=== PATIENT | female | born 1935 | race American Indian/Alaskan Native ===

== ENCOUNTER 2021-04-09 16:18 | Emergency (ER) | payer MEDICARE ==
--- NOTE | 2021-04-09 17:33 | Emergency Department Report ---
HPI - General Chief Complaint: GI Bleed Time Seen by Provider: 04/09/21 17:21 - HPI HPI: 85-year-old -[place] female presents to the emergency department with complaint of rectal bleeding. Overall she says that this has been going on since November but usually "it shuts off on its own." Since this morning the patient has had 2 episodes of heavy rectal bleeding with bowel movements. She says that it is a dark appearing blood. She has some mild lower abdominal cramping pain. Patient is visiting from [place]. She has not taken anything for symptoms prior to presentation. She denies any fever, rectal pain, dysuria, back pain, nausea, vomiting. She has a past medical history of diabetes. ED Past Medical Hx - Past Medical History Hx Diabetes: Yes - Surgical History Past Surgical History?: No ED Review of Systems ROS: Stated complaint: RECTAL BLEEDING Other details as noted in HPI Comment: All other systems reviewed and negative Constitutional: denies: chills, fever Eyes: denies: eye pain, vision change ENT: denies: ear pain, throat pain Respiratory: denies: cough, shortness of breath Cardiovascular: denies: chest pain, palpitations Gastrointestinal: abdominal pain, other (Rectal bleeding). denies: nausea, vomiting Genitourinary: denies: dysuria, discharge Musculoskeletal: denies: back pain, joint swelling Skin: denies: rash, lesions Neurological: denies: headache, weakness Physical Exam - Physical Exam Vital Signs: Vital Signs 04/09/21 04/09/21 16:22 16:24 Temperature 97.1 F L Pulse Rate 74 Respiratory 20 Rate Blood Pressure 149/65 O2 Sat by Pulse 98 Oximetry Physical Exam: GENERAL: The patient is well-developed well-nourished. HENT: Normocephalic. Atraumatic. Patient has moist mucous membranes. EYES: Extraocular motions are intact. NECK: Supple. Trachea is midline. CHEST/LUNGS: Clear to auscultation. There is no respiratory distress noted. HEART/CARDIOVASCULAR: Regular. There is no tachycardia. There is no murmur. ABDOMEN: Abdomen is soft. Mild lower abdominal tenderness to palpation. No guarding. Patient has normal bowel sounds. There is no abdominal distention. SKIN: Skin is warm and dry. NEURO: The patient is awake, alert, and oriented. The patient is cooperative. Normal speech. MUSCULOSKELETAL: There is no tenderness or deformity. There is no limitation range of motion. RECTAL: There is some gross red blood seen per rectum. No active hemorrhage. ED Course Vital Signs 04/09/21 04/09/21 16:22 16:24 Temperature 97.1 F L Pulse Rate 74 Respiratory 20 Rate Blood Pressure 149/65 O2 Sat by Pulse 98 Oximetry - Reevaluation(s) Reevaluation #1: 04/10/21 00:12 Rectal examination done with entry level lab technician Brianna at bedside to crystal lapper. - Consultations Consultation #1: 04/09/21 22:10 I spoke to the general surgeon on-call, Dr. Thomson, in regards to the CT findings of cholelithiasis with acute mild cholecystitis. As the patient does not have any tenderness to palpation in the right upper quadrant, is afebrile, does not have any leukocytosis, has normal LFTs and bilirubin, the patient does not appear to require any type of immediate surgical intervention or admission secondary to this CT finding. It may represent chronic cholecystitis. Consultation #2: 04/09/21 22:47 I spoke to the geography instructor on-call, Dr. Mcmahan. We discussed the patient's presentation, lab results, CT results showing sigmoid diverticulosis, vital signs. He agrees with the patient appears safe for discharge home at this time and with the plan for outpatient follow-up with [facility] prior to her return to [place]. He recommends the patient avoid any aspirin or NSAIDs. He recommends that the patient has good blood pressure control. ED Medical Decision Making - Lab Data Result diagrams: 04/09/21 17:35 04/09/21 17:35 Lab Results 04/09/21 04/09/21 04/09/21 Range/Units 17:35 17:35 17:35 WBC 8.6 (4.5-11.0) K/mm3 RBC 3.83 (3.65-5.03) M/mm3 Hgb 11.1 (10.1-14.3) gm/dl Hct 34.3 (30.3-42.9) % MCV 90 (79-97) fl MCH 29 (28-32) pg MCHC 32 (30-34) % RDW 13.3 (13.2-15.2) % Plt Count 234 (140-440) K/mm3 Lymph % (Auto) 24.0 (13.4-35.0) % Johnson % (Auto) 5.9 (0.0-7.3) % Eos % (Auto) 1.5 (0.0-4.3) % Baso % (Auto) 0.5 (0.0-1.8) % Lymph # (Auto) 2.1 (1.2-5.4) K/mm3 Johnson # (Auto) 0.5 (0.0-0.8) K/mm3 Eos # (Auto) 0.1 (0.0-0.4) K/mm3 Baso # (Auto) 0.0 (0.0-0.1) K/mm3 Seg Neutrophils % 68.1 (40.0-70.0) % Seg Neutrophils # 5.9 (1.8-7.7) K/mm3 PT 13.1 (12.2-14.9) Sec. INR 0.89 (0.87-1.13) APTT 31.9 (24.2-36.6) Sec. Sodium 139 (137-145) mmol/L Potassium 4.3 (3.6-5.0) mmol/L Chloride 102.4 (98-107) mmol/L Carbon Dioxide 26 (22-30) mmol/L Anion Gap 15 mmol/L BUN 22 H (7-17) mg/dL Creatinine 1.0 (0.6-1.2) mg/dL Estimated GFR 53 ml/min BUN/Creatinine Ratio 22 % Glucose 308 H (65-100) mg/dL POC Glucose (70-105) mg/dL Calcium 9.0 (8.4-10.2) mg/dL Total Bilirubin 0.20 (0.1-1.2) mg/dL AST 12 (5-40) units/L ALT 10 (7-56) units/L Alkaline Phosphatase 79 (35-129) units/L Total Protein 6.3 (6.3-8.2) g/dL Albumin 3.6 L (3.9-5) g/dL Albumin/Globulin Ratio 1.3 % 04/09/ Range/Units 20:31 WBC (4.5-11.0) K/mm3 RBC (3.65-5.03) M/mm3 Hgb (10.1-14.3) gm/dl Hct (30.3-42.9) % MCV (79-97) fl MCH (28-32) pg MCHC (30-34) % RDW (13.2-15.2) % Plt Count (140-440) K/mm3 Lymph % (Auto) (13.4-35.0) % Johnson % (Auto) (0.0-7.3) % Eos % (Auto) (0.0-4.3) % Baso % (Auto) (0.0-1.8) % Lymph # (Auto) (1.2-5.4) K/mm3 Johnson # (Auto) (0.0-0.8) K/mm3 Eos # (Auto) (0.0-0.4) K/mm3 Baso # (Auto) (0.0-0.1) K/mm3 Seg Neutrophils % (40.0-70.0) % Seg Neutrophils # (1.8-7.7) K/mm3 PT (12.2-14.9) Sec. INR (0.87-1.13) APTT (24.2-36.6) Sec. Sodium (137-145) mmol/L Potassium (3.6-5.0) mmol/L Chloride (98-107) mmol/L Carbon Dioxide (22-30) mmol/L Anion Gap mmol/L BUN (7-17) mg/dL Creatinine (0.6-1.2) mg/dL Estimated GFR ml/min BUN/Creatinine Ratio % Glucose (65-100) mg/dL POC Glucose 189 H (70-105) mg/dL Calcium (8.4-10.2) mg/dL Total Bilirubin (0.1-1.2) mg/dL AST (5-40) units/L ALT (7-56) units/L Alkaline Phosphatase (35-129) units/L Total Protein (6.3-8.2) g/dL Albumin (3.9-5) g/dL Albumin/Globulin Ratio % - Radiology Data Radiology results: report reviewed CT ABDOMEN AND PELVIS WITH CONTRAST INDICATION: Abd pain, Rectal bleeding. TECHNIQUE: Axial CT images were obtained through the abdomen and pelvis after 100 cc Omni [address] scans at this location are performed using CT dose reduction for ALARA by means of automated exposure control. COMPARISON: None available. FINDINGS: LOWER CHEST: No significant abnormality. LIVER: No significant abnormality. GALLBLADDER: Calcified gallstones with mild gallbladder wall thickening BILE DUCTS: No significant abnormality. PANCREAS: No significant abnormality. SPLEEN: No significant abnormality. ADRENALS: No significant abnormality. RIGHT KIDNEY and URETER: Several simple cysts, largest of which measures 2 cm arising from lower pole LEFT KIDNEY and URETER: Several tiny simple cysts STOMACH and SMALL BOWEL: No significant abnormality. COLON: Moderate sigmoid diverticulosis without diverticulitis. Moderate constipation APPENDIX: No significant abnormality. PERITONEUM: No free fluid. No free air. No fluid collection. LYMPH NODES: No significant adenopathy. AORTA and ARTERIES: Extensive vascular calcifications nonaneurysmal aorta and iliac arteries. No occlusion. IVC and VEINS: No significant abnormality. URINARY BLADDER: No significant abnormality. REPRODUCTIVE ORGANS: Abnormal uterus with probable thickened complex endometrium measuring 3.9 cm ADDITIONAL FINDINGS: None. SKELETAL SYSTEM: Osteopenia with old compression fracture involving superior endplate of T12 and moderate degenerative changes of lumbar spine IMPRESSION: 1. Cholelithiasis with acute mild acute cholecystitis. 2. Abnormal thickened endometrium could represent endometrial polyp/cancer or submucosal fibroid. Recommend pelvic ultrasound and/or SHELL MOLD BONDER consultation 3. Sigmoid diverticulosis. - Medical Decision Making This patient presents to the emergency department with a complaint of rectal bleeding that has been going on intermittently since November, but worsened this morning. She says that mostly occurred with bowel movements but that there was a large amount of blood. She also complains of some mild lower abdominal discomfort. On examination there is some reproducible lower abdominal tenderness to palpation but the abdomen is soft, nondistended and nontoxic in appearance. During my chaperoned rectal examination, the patient does have some bright red blood seen in her diaper but no active hemorrhage. Labs are mostly unremarkable including CBC, metabolic panel and coags. Her hemoglobin is 11 and this is not at a level that requires transfusion. The patient does not appear to be having any signs and symptoms of symptomatic anem ia. Patient had some hyperglycemia with a blood sugar of about 300, but it came down to an Accu-Chek of about 190 without any insulin given. There is very mild renal insufficiency with a GFR of 53. CT scan of the abdomen and pelvis with IV contrast shows cholelithiasis with mild cholecystitis, moderate sigmoid diverticulosis, and an area of thickened endometrium that could be fibroid versus polyp versus cancer versus other. I spoke to the general surgeon on-call regarding the CT findings of cholelithiasis with mild cholecystitis and she agrees that this does not appear to be something that requires admission or immediate surgical intervention. I spoke with GI on-call and the patient can be safely discharged home with outpatient follow-up with [facility]. She will refrain from any aspirin or NSAIDs and try to keep her blood pressure in control. All of the lab and imaging results, as well as the outpatient plan, was discussed with both the patient and her daughter in great detail. She will return to the emergency department with any worsening of her symptoms or with any acute distress. Critical Care Time: No Critical care attestation.: If time is entered above; I have spent that time in minutes in the direct care of this critically ill patient, excluding procedure time. ED Disposition Clinical Impression: Diverticulosis of sigmoid colon, Thickened endometrium, Rectal bleeding Cholelithiasis Qualifiers: Cholelithiasis location: gallbladder Cholecystitis presence: with cholecystitis Cholecystitis acuity: unspecified acuity Biliary obstruction: without biliary obstruction Qualified Code(s): K80.10 - Calculus of gallbladder with chronic cholecystitis without obstruction Disposition: 01 HOME / SELF CARE / HOMELESS Is pt being admited?: No Condition: Stable Instructions: Cholelithiasis, Diverticulosis, Lower Gastrointestinal Bleeding Additional Instructions: You were found to have a condition called diverticulosis that is most likely the cause of your rectal bleeding. Please avoid any aspirin products such as Goody's or BC powder, and avoid any NSAIDs such as ibuprofen, Aleve, naproxen, Advil. Please check your blood pressure regularly and make sure that it is not elevated as an elevated blood pressure could increase your rectal bleeding. I am giving you a referral for a local geography instructor, Dr. Mcmahan, part of [facility]. Please call on Monday and see if you can get an appointment within the next week, especially before your return trip to [facility]. Please return to the emergency department immediately with any increased rectal bleeding, development of shortness of breath, chest pain, lightheadedness/dizziness, weakness, or with any acute distress. Please do a Internet search regarding a "diverticulosis diet." Generally this means to avoid small nuts, seeds, and other foods that can get stuck in the diverticulum and cause infection. Your CT scan of the abdomen and pelvis also showed that you have a condition called cholelithiasis, gallstones. I do not believe that this is the cause of your rectal bleeding or your lower abdominal discomfort. The CT scan also showed that you have a thickened endometrium, the lining of the uterus. This may represent a fibroid or polyp, but she will need to follow-up with an CUSTOMER FIELD REPRESENTATIVE to make sure that it is not something dangerous. Return to the emergency department with any worsening of your symptoms, new or concerning symptoms not addressed during this current emergency department visit , or with any acute distress. Referrals: PRIMARY CAREMD [Primary Care Provider] - 3-5 Days JOSEFA MCMAHAN MD [Staff Physician] - 2-3 Days Forms: Accompanied Note Time of Disposition: 22:31
[2021-04-09 18:00] LABS: Basophils % (Auto) 0.5 % (0.0-1.8); Eosinophils # (Auto) 0.1 K/mm3 (0.0-0.4); Eosinophils % (Auto) 1.5 % (0.0-4.3); Hematocrit 34.3 % (30.3-42.9); Hemoglobin 11.1 gm/dl (10.1-14.3); Lymphocytes # (Auto) 2.1 K/mm3 (1.2-5.4); Mean Corpuscular HGB Conc 32 % (30-34); Mean Corpuscular Volume 90 fl (79-97); Monocytes # (Auto) 0.5 K/mm3 (0.0-0.8); Monocytes % (Auto) 5.9 % (0.0-7.3); Platelet Count 234 K/mm3 (140-440); Red Blood Count 3.83 M/mm3 (3.65-5.03); Red Cell Distribution Width 13.3 % (13.2-15.2)
[2021-04-09 18:15] LABS: INR 0.89 (0.87-1.13)
[2021-04-09 18:16] LABS: Albumin 3.6 g/dL (3.9-5)
[2021-04-09 18:17] LABS: Partial Thromboplastin Time 31.9 Sec. (24.2-36.6)
[2021-04-09] MEDS ORDERED: INSULIN REGULAR, HUMAN 100 UNITS/1 ML IV ONE (20:24)
--- NOTE | 2021-04-09 21:38 | Cat Scan Report ---
CT ABDOMEN AND PELVIS WITH CONTRAST INDICATION: Abd pain, Rectal bleeding. TECHNIQUE: Axial CT images were obtained through the abdomen and pelvis after 100 cc Omni [address] scans at this location are performed using CT dose reduction for ALARA by means of automated expos ure control. COMPARISON: None available. FINDINGS: LOWER CHEST: No significant abnormality. LIVER: No significant abnormality. GALLBLADDER: Calcified gallstones with mild gallbladder wall thickening BILE DUCTS: No significant abnormality. PANCREAS: No significant abnormality. SPLEEN: No significant abnormality. ADRENALS: No significant abnormality. RIGHT KIDNEY and URETER: Several simple cysts, largest of which measures 2 cm arising from lower pole LEFT KIDNEY and URETER: Several tiny simple cysts STOMACH and SMALL BOWEL: No significant abnormality. COLON: Moderate sigmoid diverticulosis without diverticulitis. Moderate constipation APPENDIX: No significant abnormality. PERITONEUM: No free fluid. No free air. No fluid collection. LYMPH NODES: No significant adenopathy. AORTA and ARTERIES: Extensive vascular calcifications nonaneurysmal aorta and iliac arteries. No occl usion. IVC and VEINS: No significant abnormality. URINARY BLADDER: No significant abnormality. REPRODUCTIVE ORGANS: Abnormal uterus with probable thickened complex endometrium measuring 3.9 cm ADDITIONAL FINDINGS: None. SKELETAL SYSTEM: Osteopenia with old compression fracture involving superior endplate of T12 and mode rate degenerative changes of lumbar spine IMPRESSION: 1. Cholelithiasis with acute mild acute cholecystitis. 2. Abnormal thickened endometrium could represent endometrial polyp/cancer or submucosal fibroid. Rec ommend pelvic ultrasound and/or TECHNOLOGY COORDINATOR consultation 3. Sigmoid diverticulosis. Signer Name: Raymundo Parham MD Signed: 04/09/2021 9:33 PM Workstation Name: [id number]
[2021-04-10 02:54] VITALS: BP 142/82
== END 2021-04-09 20:00 | disposition home or self-care (01) ==
LOC: ED 16:18
DX: K80.10 Calculus of gallbladder with chronic cholecystitis without obstruction (principal); K57.32 Diverticulitis of large intestine without perforation or abscess without bleeding; K62.5 Hemorrhage of anus and rectum; I10 Essential (primary) hypertension; Z79.899 Other long term (current) drug therapy
CPT/HCPCS: 36415; 74177; 80053; 82962; 85025; 85610; 85730; 99284; Q9967; J1815